=== PATIENT | female | born 1935 | race Caucasian/White ===

== ENCOUNTER 2020-07-10 06:14 | Outpatient (REF) | payer SELFPAY ==
[2020-07-10 06:56] LABS: Hematocrit 33.2 % (37-47); Hemoglobin 10.4 g/dl (12.0-16.0); Mean Corpuscular HGB Conc 31.3 g/dl (31.0-35.0); Mean Corpuscular Hemoglobin 28.9 pg (27.0-33.0); Mean Corpuscular Volume 92.2 fL (80-98); Mean Platelet Volume 11.1 fL (9.4-12.3); Platelet Count 179 X10*3/uL (160-400)
[2020-07-10 07:58] LABS: Anion Gap 17 (12-20); Blood Urea Nitrogen 36 mg/dL (9-16); Calcium 8.3 mg/dL (8.4-10.2); Carbon Dioxide 26 mmol/L (22-29); Chloride 99 mmol/L (96-108); Estimated Glomerular Filt Rate 11; Glucose Random 141 mg/dL (60-115); Potassium 3.2 mmol/L (3.3-5.1); Sodium 139 mmol/L (135-145)
== END 2020-07-10 06:15 | disposition home or self-care (01) ==
LOC: HO.MMNH1L 06:14
PROVIDERS: Visit Provider Family Medicine
DX: E11.49 Type 2 diabetes mellitus with other diabetic neurological complication (principal); I10 Essential (primary) hypertension; M13.0 Polyarthritis, unspecified
CPT/HCPCS: 36415; 80048; 85027

== ENCOUNTER 2021-09-27 05:55 | Day surgery (SDC) | payer MEDICARE, MEDICAID, SELFPAY ==
[2021-09-20 10:24] VITALS: BMI 26.1
--- NOTE | 2021-09-21 12:43 | HO.ANESPROP2 ---
Documented by User: Sarina Rees NP 09/21/21 12:45 HPI - Anesthesia Eval Consult details Narrative: 86yo F for Basilic Vein Transposition ESRD with HD on MWF Left AV fistula - No IV/BP on LEFT PMFSH Past Medical History Medical History (Updated 09/20/21 @ 10:32 by Luz Elena Diaz, RN) A-V fistula Anxiety Arthritis Back pain Diabetes mellitus Elevated cholesterol ESRD (end stage renal disease) on dialysis Forgetfulness History of CVA (cerebrovascular accident) History of fracture of right hip History of fractured kneecap HTN (hypertension) Insomnia Overactive bladder Secondary hyperparathyroidism Surgical History Surgical History (Updated 09/20/21 @ 10:21 by Luz Elena Diaz, SUNDAY) History of arthroplasty of knee History of bilateral knee arthroplasty Hx of appendectomy Hx of hysterectomy Social History Social History Are you a primary home health care worker to a significant other at home: No Do you presently have visiting nurse or other home services: Yes ([facility] 5 x week) Patient Tobacco Use Status: Never used Tobacco Use of substances other than those prescribed or required for medical reasons: No Are you DNR?: No Advance Directives: No (will bring dos) Advance Directives Information Provided: Yes Advance Directives on File: No Recently lost weight without trying: Yes How much weight loss: 34pounds or more Nutrition Risks: Surgical patient >75years Meds Allergies Allergy/AdvReac Type Severity Reaction Status Date / Time indomethacin Allergy Unknown Verified 09/18/21 14:59 Penicillins Allergy Hives Verified 09/18/21 14:59 Home Medications Medication Instructions Recorded Confirmed Last Taken Type acetaminophen 500 mg tablet 1,000 mg PO BID 09/18/21 09/18/21 Unknown History bisacodyl 10 mg rectal suppository 10 mg MD DAILY PRN Constipation 09/18/21 09/18/21 Unknown History (Dulcolax (bisacodyl)) insulin glargine 100 unit/mL (3 4 unit subcut QPM 09/18/21 09/18/21 Unknown History mL) subcutaneous pen (Lantus Solostar U-100 Insulin) losartan 25 mg tablet 25 mg PO DAILY 09/18/21 09/18/21 Unknown History quetiapine 25 mg tablet (Seroquel) 12.5 - 25 mg PO BEDTIME PRN 09/18/21 09/18/21 Unknown History Insomnia sennosides 8.6 mg capsule (senna) 8.6 mg PO 3XW 09/18/21 09/20/21 Unknown History sevelamer carbonate 800 mg tablet 800 mg PO TID 09/18/21 09/20/21 Unknown History (Renvela) simvastatin 20 mg tablet 20 mg PO BEDTIME 09/18/21 09/18/21 Unknown History Exam Exam Date and Time: September 21, 2021 1243 Height,Weight and Vital Signs: Height 5 ft 5 in Weight 71.214 kg Assessment and Plan Assessment Anesthesia Assessment: Chart Reviewed Documented by User: Tye Naqvi MD 09/27/21 10:55 HPI - Anesthesia Eval Consult details Narrative: 86yo F for Basilic Vein Transposition ESRD with HD on MWF Left AV fistula - No IV/BP on LEFT TIA h/o intracranial bleed PMFSH Past Medical History Medical History (Updated 09/20/21 @ 10:32 by Luz Elena Diaz, SUNDAY) A-V fistula Anxiety Arthritis Back pain Diabetes mellitus Elevated cholesterol ESRD (end stage renal disease) on dialysis Forgetfulness History of CVA (cerebrovascular accident) History of fracture of right hip History of fractured kneecap HTN (hypertension) Insomnia Overactive bladder Secondary hyperparathyroidism Family History Family history of problems with anesthesia: No Surgical History Surgical History (Updated 09/20/21 @ 10:21 by Luz Elena Diaz, RN) History of arthroplasty of knee History of bilateral knee arthroplasty Hx of appendectomy Hx of hysterectomy History of Problems with Anesthesia: No Social History Social History Are you a primary home health care worker to a significant other at home: No Do you presently have visiting nurse or other home services: Yes ([facility] 5 x week) Patient Tobacco Use Status: Never used Tobacco Use of substances other than those prescribed or required for medical reasons: No Are you DNR?: No Advance Directives: No (will bring dos) Advance Directives Information Provided: Yes Advance Directives on File: No Recently lost weight without trying: Yes How much weight loss: 34pounds or more Nutrition Risks: Surgical patient >75years Meds Allergies Allergy/AdvReac Type Severity Reaction Status Date / Time indomethacin Allergy Unknown Verified 09/18/21 14:59 Penicillins Allergy Hives Verified 09/18/21 14:59 Home Medications Medication Instructions Recorded Confirmed Last Taken Type acetaminophen 500 mg tablet 1,000 mg PO BID 09/18/21 09/18/21 Unknown History bisacodyl 10 mg rectal suppository 10 mg MD DAILY PRN Constipation 09/18/21 09/18/21 Unknown History (Dulcolax (bisacodyl)) insulin glargine 100 unit/mL (3 4 unit subcut QPM 09/18/21 09/18/21 Unknown History mL) subcutaneous pen (Lantus Solostar U-100 Insulin) losartan 25 mg tablet 25 mg PO DAILY 09/18/21 09/18/21 Unknown History quetiapine 25 mg tablet (Seroquel) 12.5 - 25 mg PO BEDTIME PRN 09/18/21 09/18/21 Unknown History Insomnia sennosides 8.6 mg capsule (senna) 8.6 mg PO 3XW 09/18/21 09/20/21 Unknown History sevelamer carbonate 800 mg tablet 800 mg PO TID 09/18/21 09/20/21 Unknown History (Renvela) simvastatin 20 mg tablet 20 mg PO BEDTIME 09/18/21 09/18/21 Unknown History Exam Airway Mallampati Class: III TM Dist: >3cm Neck ROM: Full Denture: Upper Loose/Missing/Broken Teeth: Yes (poor dentition ) Heart: S1,S2 Lungs: b/l breath sounds Assessment and Plan Assessment Anesthesia Assessment: Anesthesia Plan Discussed Final Anesthetic Review Family History of Problems with Anesthesia: No History of Problems with Anesthesia: No NPO: Yes ASA Class: III Final Preanesthetic Review: Meds/Allgs Chart Reviewed, Consent Obtained/Reviewed and Anes Risks/Benef Reviewed Patient Risk: High Procedure Risk: Intermediate Anesthetic Plan Anesthetic Plan: MAC: (General Backup ) Disposition: Standard PACU
[2021-09-27] VITALS (14 sets, daily range): BP systolic 127–168; BP diastolic 45–70; PULSE 75–85; RESP 16–20; TEMP 36.4–36.8; O2SAT 95–100
[2021-09-27 06:27] LABS: Glucose, Whole Blood 126 mg/dL (60-115)
--- NOTE | 2021-09-27 06:57 | ECG_ITS ---
Test Reason : BASELINE EKG Blood Pressure : / mmHG Vent. Rate : 080 BPM Atrial Rate : 080 BPM P-R Int : 162 ms QRS Dur : 100 ms QT Int : 402 ms P-R-T Axes : 055 015 037 degrees QTc Int : 463 ms Normal sinus rhythm Normal ECG No previous ECGs available Referred By: Vera Whiting Electronically Signed By:ANEUDY AMARAL
[2021-09-27 06:59] LABS: Anion Gap 18 (12-20); Carbon Dioxide 25 mmol/L (22-29); Chloride 100 mmol/L (96-108); Potassium 4.4 mmol/L (3.3-5.1); Sodium 139 mmol/L (135-145)
[2021-09-27] MEDS: 0.9 % Sodium Chloride 1,000 ML 50 ML IVCONT (07:23)
[2021-09-27] MEDS: fentaNYL citrate/PF 100 MCG/2 ML VIAL 25 MCG IVPUSH ×3 (11:22→12:36)
[2021-09-27] MEDS: Acetaminophen 325 MG TABLET 650 MG PO (11:22)
--- NOTE | 2021-09-27 11:26 | P.OP_ITS ---
Operative Note Operative Note Date of Service: 09/27/21 Narrative: Pre-op Dx: ESRD Post-op Dx: ESRD Operation: left arm basilic vein transposition Surgeon: Natalya Kelly MD Anesthesia: MAC/local Procedure: Patient was placed on the OR table in a supine position. The left arm was pre pped and draped in a sterile fashion. An US was performed. A surgical timeout took place. Local anesthetic was used. An incision was made over the basilic vein. The basilic vein was skeletonized and branches were ligated with silk ties. A second incision was made to skeletonize the vein. The vein was ligated and divided just above the elbow. It was flushed with heparinized saline. It was subsequently tunneled. The brachial artery was dissected out and skeletonized just above the elbow. It was clamped proximately and distally. An arteriotomy was made. The end of the transposed basilic vein was anastomosed to the brachial artery in an end to side fashion using 6-0 Prolene suture in a running fashion. There was an excellent thrill. Hemostasis was maintained. The incisions were closed in layers and surgical glue was applied. All instrument, sponge and needle counts were correct at the end of the case. The patient tolerated the procedure well. The hand was well perfused at the end of the case.
[2021-09-27] MEDS: oxyCODONE HCl Immed Release 5 MG TABLET PO (12:36)
== END 2021-09-27 13:58 | disposition home or self-care (01) ==
PROVIDERS: Nurse Practitioner; PCP Nurse Practitioner Family; Visit Provider Transplant Surgery
PROC: (CPT 36819; principal; 2021-09-27 07:30)
DX: I12.0 Hypertensive chronic kidney disease with stage 5 chronic kidney disease or end stage renal disease (principal); E11.22 Type 2 diabetes mellitus with diabetic chronic kidney disease; N18.6 End stage renal disease; Z99.2 Dependence on renal dialysis; Z79.4 Long term (current) use of insulin; E78.00 Pure hypercholesterolemia, unspecified; Z79.899 Other long term (current) drug therapy; Z79.51 Long term (current) use of inhaled steroids; Z86.73 Personal history of transient ischemic attack (TIA), and cerebral infarction without residual deficits; Z88.0 Allergy status to penicillin
CPT/HCPCS: 36819; 36415; 80051; 82947; 93005; J0690; J2370; J2405; J3010; J3370